=== PATIENT | female | born 1940 | race Caucasian/White ===

== ENCOUNTER 2024-03-13 14:56 | Observation (INO) | payer OTHER, SELFPAY ==
[2024-03-13] VITALS (11 sets, daily range): BP systolic 141–193; BP diastolic 60–92; PULSE 79–98; BMI 25.0; BMI 24.7
[2024-03-13 10:31] LABS: ALT (SGPT) 20 U/L (0-35); AST (SGOT) 29 U/L (14-36); Albumin 3.9 g/dl (3.5-5.0); Alkaline Phosphatase 98 U/L (38-126); Blood Urea Nitrogen 20 mg/dl (7-17); Calcium 10.7 mg/dl (8.4-10.2); Carbon Dioxide 26 mmol/L (22-30); Chloride 108 mmol/L (98-107); Estimated Creatinine Clearance 57 ml/min; Glucose 106 mg/dl (70-99); Potassium 4.3 mmol/L (3.5-5.1); Sodium 140 mmol/L (135-145); Total Bilirubin 0.6 mg/dl (0.2-1.3); Total Protein 6.3 g/dl (6.3-8.2); eGFR > 60.00
--- NOTE | 2024-03-13 10:31 | ED.GENMED ---
History of Present Illness
<JENNY Juarez - Last Filed: 03/13/24 15:17>
General
Chief Complaint: Weakness
Source: patient
Exam Limitations: none
Time Seen by Provider: 03/13/24 10:03
Nursing documentation reviewed up to this point in time: agreed with
History of Present Illness
History of Present Illness:
Patient is an 83-year-old female past med history of hypertension hyperlipidemia presents to the ER for leg weakness. Patient reports around 730 this morning she was getting up out of a chair to walk to her sink and her legs buckled and she felt
leg weakness. She felt weakness in both of her legs and this has persisted. She denied feeling lightheaded denies vertigo or dizziness. Denied headache denied chest pain shortness of breath.
Patient denies any upper extremity weakness. She does report over the past couple days however she feels more tired and just wants to sleep. She denies any bowel or bladder incontinence. Denies any numbness or tingling the legs.
Past History
<JENNY Juarez - Last Filed: 03/13/24 15:17>
Past History
ED Past Medical History: HTN, Hypercholesterolemia, Hypothyroidism and Other (Diverticulitis); Negative IDDM or NIDDM
Social History
Tobacco: Smoker
Family History
Family History: Negative CAD
Review of Systems
<JENNY Juarez - Last Filed: 03/13/24 15:17>
Review of Systems
Other source history: family
All Other Systems: ROS reviewed and negative except as documented in HPI and ROS
Constitutional: Reports fatigue; Denies fever or chills
EENT: Reports no symptoms
Respiratory: Reports no symptoms
Cardiac: Reports no symptoms
ABD/GI: Reports no symptoms
: Reports no symptoms
Musculoskeletal: Reports other (leg weakness)
Skin: Reports no symptoms
Psychiatric: Reports no symptoms
Phy Exam
<JENNY Juarez - Last Filed: 03/13/24 15:17>
General Physical Exam
General Presentation: no apparent distress
General age: appears stated age
General Skin: warm and dry
General Habitus: normal
General Hydration: appears well hydrated
Cardiovascular Exam
Cardiovascular Exam: regular rate/rhythm, no murmur and normal peripheral pulses
Pulmonary Exam
Pulmonary Exam: lungs clear and no respiratory distress
Neurological Exam
Neurological Exam: alert, oriented x3 and other (nml b/l l/e strength and sensation; normal bilateral dorsiflexion plantarflexion strong distal pulses gait ; gait however is often unsteady appears weak mildly ataxic)
Musculoskeletal Exam
Musculoskeletal Exam: full ROM and other (Normal inspection bilateral external pulses)
Skin Exam
Skin Exam: normal color and warm/dry
Psychiatric Exam
Psychiatric Exam: normal mood/affect
Course
<JENNY Juarez - Last Filed: 03/13/24 15:17>
Orders/Labs/Results
Orders:
Orders
03/13/24 10:08
CMP [Comprehensive Metabolic Panel] Urgent
Complete Blood Count/With Diff Urgent
03/13/24 10:30
IV Insert/Care/Rem.- Treatment PRN
03/13/24 10:37
0.9% Sodium Chloride 1000 ml [Nss] 1,000 ml IV BOLUS
03/13/24 11:12
UA Reflex to Culture [Urinalysis Reflex To Culture] Urgent
Date Specimen was Collected: 03/13/24
Time Specimen was Collected: 11:08
Urine Microscopic Reflex Cult Urgent
Urine Culture Urgent
OSCAR Source: U
Specimen Description:
Date Specimen was Collected: 03/13/24
Time Specimen was Collected: 11:08
03/13/24 11:25
CT Head W/o Iv Contrast Urgent
Comment:
Reason For Exam: b/l l/e weakness
03/13/24 12:37
Aspirin Chewable [Low Strength Aspirin] 324 mg PO NOW STA
03/13/24 12:49
MR Brain Without Contrast Routine
Comment:
Reason For Exam: Sudden ataxia/walking dif, ? Cerebellar infarct?
Recent pill cam endoscopy?: No
MR Lumbar Without Contrast Routine
Comment:
Reason For Exam: Chronic back pain, sudden diff walking, no trauma
Recent pill cam endoscopy?: No
03/13/24 14:04
CefTRIAXone [Rocephin] 1,000 mg IV NOW STA
03/13/24 14:10
Electrocardiogram (*1) Stat
Reason for Study: Other
Other Reason for Exam: chest pain
EKG- Treatment ONCE
03/13/24 14:37
Admit/Transfer Patient As Directed
Co-Sign Provider:
Level of Care: Observation services
Assign to:: Telemetry
Physician / Group: Laith
Diagnosis: Bilateral Lower Ext Weakness / Ataxia
Reason for Telemetry: CVA/TIA
Date to Stop Telemetry: 03/16/24
Time to Stop Telemetry: 11:00
NIH Stroke Scale As Directed
Directions: Per protocol
Comment: Please until order to stop
Neurological Checks As Directed
Frequency: Per unit guidelines
03/13/24 14:38
PRN Pain Medication Management As Directed
May give lesser potent ordered pain med per pt: Yes
preference::
Protocol:: Medication orders for pain may be administered in a
manner that supports deferring to patient preference
when the pt is:
- Requesting an ordered lesser potent pain medication.
Least to most potent pain medications are defined
as: acetaminophen < NSAID < tramadol < opioids
(morphine, oxycodone, hydromorphone).
- Requesting a lesser dose of the same medication IF
ORDERED.
- Requesting a less intrusive route of administration
if both routes are prescribed by the provider (PO <
IV).
Ot Eval And Treat Routine
Pt Eval And Treat Routine
Treatment: Gait dysfxn
Activity Level: Out of Bed- Chair
03/13/24 14:40
Code Status As Directed
Resuscitation Status: Full Code
03/14/24 08:00
Aspirin Chewable [Low Strength Aspirin] 81 mg PO DAILY
03/16/24 11:00
DC Protocol for Telemetry ONCE
Abnormal Lab Results
03/13/24 03/13/24
10:08 11:12
Chloride 108 H mmol/L
(98-107)
BUN 20 H mg/dl
(7-17)
Glucose 106 H mg/dl
(70-99)
Calcium 10.7 H mg/dl
(8.4-10.2)
Ur Occult Blood Reflex Trace A
(Negative)
Leukocyte Esterase Rfl 2+ A
(Negative)
Urine WBC (Reflex) 30-40 A /HPF
(0-5)
Urine Bacteria (Reflex) Many A
(Negative)
03/13/24 10:08
03/13/24 10:08
Vital Signs
Initial and Last Documented VS:
Initial Vital Signs
Temp Pulse Resp BP Pulse Ox
99.0 F 62 16 187/80 98
03/13/24 09:26 03/13/24 09:26 03/13/24 09:26 03/13/24 09:26 03/13/24 09:26
Last Documented Vital Signs
Temp Pulse Resp BP Pulse Ox
99.0 F 72 24 169/64 98
03/13/24 09:26 03/13/24 14:00 03/13/24 14:00 03/13/24 14:00 03/13/24 09:26
Industrial Chemistry Teacher consulted with Physician
Industrial Chemistry Teacher consulted with physician?: Yes
Name of Physician Consulted: Nazario
<David Lange, DO - Last Filed: 03/13/24 14:03>
Orders/Labs/Results
Orders:
Orders
03/13/24 10:08
CMP [Comprehensive Metabolic Panel] Urgent
Complete Blood Count/With Diff Urgent
03/13/24 10:30
IV Insert/Care/Rem.- Treatment PRN
03/13/24 10:37
0.9% Sodium Chloride 1000 ml [Nss] 1,000 ml IV BOLUS
03/13/24 11:12
UA Reflex to Culture [Urinalysis Reflex To Culture] Urgent
Date Specimen was Collected: 03/13/24
Time Specimen was Collected: 11:08
Urine Microscopic Reflex Cult Urgent
Urine Culture Urgent
OSCAR Source: U
Specimen Description:
Date Specimen was Collected: 03/13/24
Time Specimen was Collected: 11:08
03/13/24 11:25
CT Head W/o Iv Contrast Urgent
Comment:
Reason For Exam: b/l l/e weakness
03/13/24 12:37
Aspirin Chewable [Low Strength Aspirin] 324 mg PO NOW STA
03/13/24 12:49
MR Brain Without Contrast Routine
Comment:
Reason For Exam: Sudden ataxia/walking dif, ? Cerebellar infarct?
Recent pill cam endoscopy?: No
MR Lumbar Without Contrast Routine
Comment:
Reason For Exam: Chronic back pain, sudden diff walking, no trauma
Recent pill cam endoscopy?: No
03/13/24 14:04
CefTRIAXone [Rocephin] 1,000 mg IV NOW STA
03/13/24 14:10
Electrocardiogram (*1) Stat
Reason for Study: Other
Other Reason for Exam: chest pain
EKG- Treatment ONCE
03/13/24 14:37
Admit/Transfer Patient As Directed
Co-Sign Provider:
Level of Care: Observation services
Assign to:: Telemetry
Physician / Group: Laith
Diagnosis: Bilateral Lower Ext Weakness / Ataxia
Reason for Telemetry: CVA/TIA
Date to Stop Telemetry: 03/16/24
Time to Stop Telemetry: 11:00
NIH Stroke Scale As Directed
Directions: Per protocol
Comment: Please until order to stop
Neurological Checks As Directed
Frequency: Per unit guidelines
03/13/24 14:38
PRN Pain Medication Management As Directed
May give lesser potent ordered pain med per pt: Yes
preference::
Protocol:: Medication orders for pain may be administered in a
manner that supports deferring to patient preference
when the pt is:
- Requesting an ordered lesser potent pain medication.
Least to most potent pain medications are defined
as: acetaminophen < NSAID < tramadol < opioids
(morphine, oxycodone, hydromorphone).
- Requesting a lesser dose of the same medication IF
ORDERED.
- Requesting a less intrusive route of administration
if both routes are prescribed by the provider (PO <
IV).
Ot Eval And Treat Routine
Pt Eval And Treat Routine
Treatment: Gait dysfxn
Activity Level: Out of Bed- Chair
03/13/24 14:40
Code Status As Directed
Resuscitation Status: Full Code
03/14/24 08:00
Aspirin Chewable [Low Strength Aspirin] 81 mg PO DAILY
03/16/24 11:00
DC Protocol for Telemetry ONCE
Abnormal Lab Results
03/13/24 03/13/24
10:08 11:12
Chloride 108 H mmol/L
(98-107)
BUN 20 H mg/dl
(7-17)
Glucose 106 H mg/dl
(70-99)
Calcium 10.7 H mg/dl
(8.4-10.2)
Ur Occult Blood Reflex Trace A
(Negative)
Leukocyte Esterase Rfl 2+ A
(Negative)
Urine WBC (Reflex) 30-40 A /HPF
(0-5)
Urine Bacteria (Reflex) Many A
(Negative)
03/13/24 10:08
03/13/24 10:08
Vital Signs
Initial and Last Documented VS:
Initial Vital Signs
Temp Pulse Resp BP Pulse Ox
99.0 F 62 16 187/80 98
03/13/24 09:26 03/13/24 09:26 03/13/24 09:26 03/13/24 09:26 03/13/24 09:26
Last Documented Vital Signs
Temp Pulse Resp BP Pulse Ox
99.0 F 72 24 169/64 98
03/13/24 09:26 03/13/24 14:00 03/13/24 14:00 03/13/24 14:00 03/13/24 09:26
<JENNY Juarez - Last Filed: 03/13/24 15:17>
MDM/Problems Addressed
Differential Diagnosis Includes:
not limited to: leg weakness , cva , dehydration, infection
MDM/Problems Addressed:
Patient is an 83-year-old female who presented to the ER for evaluation of leg weakness. Patient got up from a chair and felt that her legs were very weak bilaterally. It has not changed in starting of symptoms. She denies any associated upper
extremity weakness or headache. She denies any difficulty with speech. She presents awake alert no acute distress oriented x 3 clear speech normal strength on exam to upper lower extremities however her gait is off her balance is off she seems
minimally ataxic. She describes as feeling very weak in her legs.
Patient evaluated by ED physician CT head negative. Patient eval by neurology who does recommend admission and MRI for possible stroke. As discussed patient was given aspirin. Patient incidentally has a UTI the end of symptoms she was treated
with 1 dose of Rocephin
Chronic conditions affecting care:
htn
<JENNY Juarez - Last Filed: 03/13/24 15:17>
*Radiology
Radiology exam reviewed: radiology read reviewed
*Pulse Oximetry
Patient hypoxic: no
*EKG
Interpreted by ED Provider?: Yes
Heart Rate: 75
Rate: normal
Rhythm: sinus
Ischemia: non-specific ST changes
*Critical Care Note
Total Time (30-74mins, 75-104mins- exclusive of procedures): Not Applicable
Data Reviewed
Review of Other/Old Records Reveals: Radiology Studies
Source: patient
<JENYN Juarez - Last Filed: 03/13/24 15:17>
Patient Management
Discussion with other providers: Legger Press Operator (Neurologist Dr Stevenson )
ED Attending Note
<JENNY Juarez - Last Filed: 03/13/24 15:17>
-
Portions of this chart may have been created with voice recognition software.� Occasional wrong word or��sound alike� substitutions may have occurred due to the inherent limitations of voice recognition software.
<David Lange DO - Last Filed: 03/13/24 14:03>
ED Attending Note
Patient seen and examined by attending physician: Yes
I performed the substantive portion of visit, reviewed & personally made and approve the management plan that is documented in note by myself or DOMENICA.: Yes
ED Attending Note:
I have seen and evaluated the patient with a [id number] encounter. I have spoken to the advance practicer provider and involved in the medical history, the physical exam, medical decision making.
Evaluation and management service: agree unless noted differently below.
Results interpretation: agree unless noted differently below.
Focused HPI: 83-year-old female presenting for evaluation of generalized leg weakness. Patient was walking and she felt her legs buckle. It was in both eyes to both legs. She thinks symptoms are improving. She denies any bowel issues. She
denies back pain or fevers. She does admit that she has not been drinking much water recently. Daughter at bedside indicating that she has been less active due to the current heat wave
Physical exam: Sitting in bed comfortably. Mildly dry mucous membranes. Negative straight leg raise. Muscle strength intact to both legs. Sensation grossly intact. Distal pulses intact. No back pain noted. No abdominal pain noted
Medical Decision Making: Given the improving symptoms without intervention, we discussed less likely spinal cord issues or [place]. Will give fluids and reassess
On reevaluation, we attempted to walk the patient but she became significantly ataxic. Neurology at bedside and will admit for MRI and further work
Discharge Plan
Departure
Patient Disposition: Admit
Date of Disposition: 03/13/24
Time of Disposition: 13:29
Admit to: Telemetry
Admit to doctor: hospitaist
Presentation/result/management discussed w/ accepting MD/DO: Hospitalist
Patient with high blood pressure during this ER visit?: Yes
Covid-19: Not Applicable
Discharge Problem:
Bilateral leg weakness, Ataxia
Interventions
Interventions:
*Risk Screen - Suicide Last Done: 03/13/24 09:52
*General Assessment Last Done: 03/13/24 09:52
*Neglect/Abuse Screening Last Done: 03/13/24 09:52
ED- Fall Risk Assessment Last Done: 03/13/24 09:52
*ED COVID-19 Vaccine History Last Done: 03/13/24 09:52
ED- Cardiac Assessment Last Done: 03/13/24 09:52
ED- Neurological Assessment Last Done: 03/13/24 09:52
ED- Pulmonary Assessment Last Done: 03/13/24 09:52
[2024-03-13] MEDS: NSS 1000 IV (11:13)
[2024-03-13 11:24] LABS: % Basophils 0.4 % (0-2); % Eosinophils 1.3 % (0-6); % Immature Granulocytes 0.1 % (0-0.5); % Monocytes 7.7 % (1.7-9.3); % Neutrophils 64.5 % (42.2-75.2); Absolute Eosinophils 0.1 10^3/uL (0-0.7); Absolute Lymphocytes 2.2 10^3/uL (1.2-3.4); Absolute Monocytes 0.6 10^3/uL (0.1-0.6); Absolute Neutrophils 5.3 10^3/uL (1.4-6.5); Hematocrit 38.3 % (37.0-47.0); Hemoglobin 13.3 g/dL (12.0-16.0); Mean Corp Hgb Conc. 34.7 g/dL (33.0-37.0); Mean Corpuscular Hgb 28.9 pg (27.0-31.0); Mean Corpuscular Volume 83.1 fL (81.0-99.0); Mean Platelet Volume 10.2 fL (7.4-10.4); Nucleated Red Blood Cells % 0 %; Platelet Count 274 10^3/uL (130-400); Red Blood Cell Count 4.61 10^6/uL (4.20-5.40); Red Cell Dist. Width 12.6 % (11.5-14.5); White Blood Cell Count 8.3 10^3/uL (4.8-10.8)
[2024-03-13 11:30] LABS: Urine Albumin Negative (Neg - Trace); Urine Bilirubin Negative (Negative); Urine Character Clear (Clear); Urine Color Yellow; Urine Glucose Negative (Negative); Urine Ketone Negative (Negative); Urine Leukocyte 2+ (Negative); Urine Nitrite Negative (Negative); Urine Occult Blood Trace (Negative); Urine Specific Gravity 1.015 (<1.030); Urine Urobilinogen Negative (Neg - 1+)
--- NOTE | 2024-03-13 11:34 | CON.NEURO4 ---
Consultation - Neurology 4
-
CONSULTING PHYSICIAN: Rasta Stevenson
REFERRING PHYSICIAN: ER
DICTATED BY: Rasta Stevenson
DATE/TIME OF REQUEST: 03/13/24
DATE/TIME OF CONSULTATION: 03/13/24
Reason for Consultation: Weakness
History of Present Illness:
The patient is an 83-year-old right-handed woman with a past medical history of hypertension hyperlipidemia presenting the hospital with sudden onset walking difficulty and leg weakness and buckling. This is happened earlier this morning but she
actually woke up this morning feeling okay when she first started her day.
No recent head neck or back trauma she has chronic back pain which is unchanged no changes in the urinary bowel function denies any urinary incontinence or retention or bowel incontinence. Describes numbness in the feet bilaterally for a couple of
years which has been a very minor issue. She started using a cane in the past couple of months feeling more steady with it.
No speech difficulty vision changes dysarthria double vision is or paresthesia. Blood pressure significantly elevated in the ED to 218-2 25 maximum systolic pressure range. No history of stroke, not taking antiplatelet or anticoagulants.
Past Medical History: Hypertension, hyperlipidemia, hypothyroidism, diverticulitis
Surgical History: Hysterectomy, complications leading to colostomy s/p takedown, right knee surgery
Family History: Non-contributory
Social History: and lives with her roque, 1 of her children passed 9 years ago, other child alive and she has grandchildren and great grandchildren, worked in sales, restaurants, formerly did [employer]
Allergies: Simvastatin
Review of Symptoms:
Patient denies any fever, headache, chest pain, shortness of breath, GI or symptoms.
Physical Exam:
Elderly woman no distress, no head or neck trauma, no neck masses or meningismus cervical spine normal to palpation, heart rate regular, breathing unlabored, abdomen soft non tender no lower extremity edema
Neurologic Examination:
The patient is awake, alert and oriented x 3. She is able to follow commands and answer questions appropriately. There is no aphasia or dysarthria. On cranial nerve assessment, pupils are 3 mm bilateral, round and reactive to light and
accommodation. Visual thakkar are full. Extraocular movements are intact. Facial sensations are intact and bilaterally symmetrical, there is no facial asymmetry. Hearing is intact bilaterally to normal conversation volume. Tongue palate and uvula
are midline. Sternocleidomastoid strengths are full bilaterally. Motor strengths are 5/5 bilateral upper and lower extremities on medical research Kenner scale. There is no drift or involuntary movement noted. DTR's 2+ present symmetric in achilles
patella biceps triceps. Coordination is intact by finger to nose bilaterally. Ataxic gait with positive Rhomberg.
Neuro Imaging: CT head unremarkable
Impressions
1. Sudden onset walking difficulty with ataxia. Patient at baseline probably has a mild peripheral neuropathy given her description of years long bilateral foot paresthesia but seems to have suffered a new insult to the nervous system. Elevated
blood pressures in the ED along with new onset ataxia would bring to mind a possible cerebellar ischemic stroke. Neurologic examination is less suggestive of a severe acute peripheral neuropathy and does not suggest a spinal cord lesion.
2. Less likely these are symptoms from UTI, patient with no dysuria or change in urinary function. Less likely this is purely a hypertensive neurologic issue.
3.
4.
Recommendations:
1. Check MRI brain and lumbar spine without contrast
2. Give aspirin 325 mg once and start aspirin 81 mg daily
3. Would pursue systolic blood pressure goal less than 180 max
4. Neurologic checks and NIH stroke scales
5. Cardiac telemetry, hold off on any echo for now
6. PT/OT mobilization
Discussed patient care with: Patient, ED
[2024-03-13 11:43] LABS: Urine Bacteria Many (Negative); Urine Red Blood Cell 0-2 /HPF (0-2); Urine White Cell 30-40 /HPF (0-5)
[2024-03-13] MEDS: LOW STRENGTH ASPIRIN 324 MG PO (12:53)
[2024-03-13] MEDS: ROCEPHIN 1000 MG IV (14:15)
--- NOTE | 2024-03-13 14:51 | HPS.HSE ---
Addendum entered and electronically signed by Akhil Ozuna MD 03/13/24 15:06:
I saw and examined the patient.
The SPECIAL EDUCATION SUPERVISOR's note was reviewed and I agree with the note.
Comment:
83-year-old female past medical history of primary hypertension, hypothyroidism was presented from home with bilateral lower extremity weakness. Patient with history of chronic back pain. States her knees buckled and she felt off balance and
unsteady. Uses cane at home. Had x-rays of the back in the past. Denies any headache, lightheadedness, dizziness or chest pain or shortness of breath. Patient was evaluated neurology in the ER and MRI brain was recommended. CT of the head was
negative. Quit smoking late last year.
General: Comfortable and Conversant
HEENT: Anicteric and Moist mucous membranes
Respiratory: Clear and Non Labored Respirations
Cardiac: S1/S2 and Regular Rhythm
GI: Soft and Non Tender
Rectal: Deferred by Provider
Musculoskeletal: No Clubbing, No Cyanosis and No Edema
Skin: Warm and Dry
Neuro: Awake, Alert, Oriented and Other (4/5 Strength Bilateral Hip Flexion; 4/5 Strength Left Knee Extension; Other dewey strength 5/5 )
Psych: Calm
Impression
Bilateral lower extremity weakness likely secondary UTI rule out CVA versus lumbar radiculopathy
Primary hypertension
Hypothyroidism
Tobacco abuse
Bowel resection with ostomy and reversal
Plan
MRI of the brain ordered
Neurochecks
NIH stroke scale
PT and OT in the morning
Continue with blood pressure control
Check lipid panel A1c
MRI lumbar spine
Status post 225 mg aspirin
Start 81 mg aspirin for now
Neurology recs
Continue home meds
dvt ppx- scds till mri results
Discussed with daughter at bedside
Original Note:
Family Physician
-
Family Physician: Heidi Lujan
Chief Complaint
-
Lower Extremity Weakness
History of Present Illness
Patient is an 83 y/o female with a PMH of Hypertension, and hyperthyroidism who reports to the ED for bilateral leg weakness. She states that this morning she was feeling fine. When she went to get up from the table after breakfast her legs felt
extremely weak and her knees buckled beneath her. Since then she has had difficulty walking and feeling off balance and unsteady. She doesn't feel like she has good feeling in her legs. She admits to using a cane while not at home. She denies upper
extremity weakness. She has a history of chronic back pain but denies o of pain down the legs. She denies dizziness, lightheadedness, vertigo, chest pain, shortness of breath, headache, changes in bowel or bladder function, paresthesia, nausea or
vomiting. She denies a history of DM or neuropathy.
Medical History
Past Medical History
Past Medical History: Reports Other
Additional Past Medical History:
Essential Hypertension
Hyperthyroidism
Past Surgical History: Reports Other
Additional Past Surgical History:
Bowel Resection with Ostomy and Subsequent Reversal
Social History
Tobacco: Former Smoker (Quit in 2022)
Alcohol: None
Personal:
Living: With Family
Family History
Family History: Not pertinent
Allergies / Home Medications
Allergies reflects when Allergies were last updated in [facility].
Home Medications with original date entered in [facility]
Allergy/Medication List:
Allergies
Allergy/AdvReac Type Severity Reaction Status Date / Time
simvastatin Allergy Intermediate Itching Verified 03/13/24 09:27
Home Medications
amlodipine 5 mg tablet 5 mg PO DAILY 03/13/24
cholecalciferol (vitamin D3) 25 mcg (1,000 unit) tablet (Vitamin D3) 25 mcg PO DAILY 03/13/24
methimazole 5 mg tablet 5 mg PO NOON 03/13/24
metoprolol tartrate 25 mg tablet 25 mg PO BID 03/13/24
naproxen sodium 220 mg tablet (Aleve) 220 mg PO BIDPRN PRN mild pain 03/13/24
therapeutic multivitamin 1 tab PO DAILY 03/13/24
Review of Systems
-
A 12 point ROS was completed and negative except as noted: Yes
Constitutional: Denies Fever or Chills
Respiratory: Denies Cough or Trouble Breathing
Cardiac: Denies Chest Pain or Palpitations
Abdomen/GI: Denies Abdominal Pain, Nausea, Vomiting or Diarrhea
Neurological: Reports See HPI
Physical Exam
Vital Signs
Vital Signs
Temp Pulse Resp BP Pulse Ox
99.0 F 72 24 169/64 98
03/13/24 09:26 03/13/24 14:00 03/13/24 14:00 03/13/24 14:00 03/13/24 09:26
Physical Exam
General: Comfortable and Conversant
HEENT: Anicteric and Moist mucous membranes
Respiratory: Clear and Non Labored Respirations
Cardiac: S1/S2 and Regular Rhythm
GI: Soft and Non Tender
Rectal: Deferred by Provider
Musculoskeletal: No Clubbing, No Cyanosis and No Edema
Skin: Warm and Dry
Neuro: Awake, Alert, Oriented and Other (4/5 Strength Bilateral Hip Flexion; 4/5 Strength Left Knee Extension; Other dewey strength 5/5 )
Psych: Calm
Laboratory Results
-
03/13/24 10:08
03/13/24 10:08
Laboratory Results
Total Bilirubin 0.6 mg/dl (0.2-1.3) 03/13/24 10:08
AST 29 U/L (14-36) 03/13/24 10:08
ALT 20 U/L (0-35) 03/13/24 10:08
Alkaline Phosphatase 98 U/L (38-126) 03/13/24 10:08
Data Reviewed
-
CT Scan: Report Reviewed by me
Lab Data: Labs Reviewed by me
Impression/Plan
-
Bilateral Lower Extremity Weakness and Ataxia, possible Acute Stroke
-Consult Neurology
-Check Brain MRI and Lumbar Spine MRI
-Check LFP and Hgba1c
-Patient given Aspirin 324mg in ED - Start Aspirin 81mg Daily
-Consult PT/OT
Urinary Tract Infection
-Continue Rocephin
-Await urine culture
Suspected Peripheral Neuropathy
-Check vitamin b12 and folic acid levels
Essential Hypertension
-Goal SBP Less Than 180
-Continue amlodipine and metoprolol
Hyperthyroidism
-Check TSH
-Continue methimazole
DVT proph: SCDs
Code Status: Full Code
--- NOTE | 2024-03-13 15:06 | W.PN.UPDATE ---
Update Note
Progress Note Update
for billing purpose
--- NOTE | 2024-03-13 17:02 | PTOTSP ---
ST Acute Care Evaluation
Pt presents with a functional oropharyngeal swallow. No overt s/s of penetration or aspiration observed at bedside. Pt's speech is clear and receptive/expressive language generally appear intact. Pt solely c/o occasional reflux s/p PO intake.
Recommendations:
- Continue with regular solids, thin liquids, meds as tolerated.
- General aspiration precautions; reflux precautions.
- Consider OP GI work-up for GERD.
- CHIEF SECURITY AND SAFETY OFFICER to sign off, no skilled services deemed necessary at this time.
[2024-03-13] MEDS: LOPRESSOR 25 MG PO (20:56)
[2024-03-14] MEDS: MELATONIN 3 MG PO (01:18)
[2024-03-14 03:24] VITALS: BP 144/66
[2024-03-14 07:59] VITALS: BP 169/80
[2024-03-14 08:06] LABS: Hematocrit 37.5 % (37.0-47.0); Hemoglobin 12.8 g/dL (12.0-16.0); Mean Corp Hgb Conc. 34.1 g/dL (33.0-37.0); Mean Corpuscular Hgb 29.1 pg (27.0-31.0); Mean Corpuscular Volume 85.2 fL (81.0-99.0); Platelet Count 226 10^3/uL (130-400); Red Cell Dist. Width 12.4 % (11.5-14.5); White Blood Cell Count 6.3 10^3/uL (4.8-10.8)
[2024-03-14] MEDS: NORVASC 5 MG PO ×2 (08:08→11:07)
[2024-03-14] MEDS: LOPRESSOR 25 MG PO (08:08)
[2024-03-14] MEDS: LOW STRENGTH ASPIRIN 81 MG PO (08:08)
[2024-03-14] MEDS: THERAGRAN 1 TABLET PO (08:08)
[2024-03-14 08:57] LABS: Blood Urea Nitrogen 15 mg/dl (7-17); Calcium 10.3 mg/dl (8.4-10.2); Carbon Dioxide 26 mmol/L (22-30); Chloride 109 mmol/L (98-107); Estimated Creatinine Clearance 57 ml/min; Glucose 94 mg/dl (70-99); HDL Cholesterol 50 mg/dl; LDL Cholesterol, Calculated 114 mg/dl; Magnesium 1.9 mg/dl (1.6-2.3); Sodium 139 mmol/L (135-145); Total Cholesterol 182 mg/dl (50-199); Triglyceride 92 mg/dl (10-149); Very Low Density Lipoprotein 18 mg/dl (0-30); eGFR > 60.00
[2024-03-14 09:07] LABS: Glycohemoglobin (HgbA1c) 5.5 % (4.0-5.6)
[2024-03-14 09:26] LABS: TSH Reflex To Free T4 < 0.02 uIU/ml (0.47-4.68)
--- NOTE | 2024-03-14 09:33 | W.PN.NEURO.1 ---
Today's Communication / Plan
-
discontinue aspirin 81 mg daily
follow orthostatics
pursue systolic blood pressure goal of normotension
can cancel NIH stroke scales
PT/OT mobilization
Neuro Assessment/Plan
Assessment
Neuro Imaging: CT head unremarkable
MRI brain and lumbar spine without contrast were unremarkable for etiology of symptoms
Impressions
1. Sudden onset walking difficulty with ataxia, improved after hospitalization.
Patient at baseline probably has a mild peripheral neuropathy given her description of years long bilateral foot paresthesia but seems to have suffered a new insult to the nervous system. Elevated blood pressures in the ED along with new onset
ataxia would bring to mind a possible hypertensive encephalopathy
Plan
discontinue aspirin 81 mg daily
follow orthostatics
pursue systolic blood pressure goal of normotension
can cancel NIH stroke scales
PT/OT mobilization
Will follow peripherally
Subjective/Objective
Subjective Data
Date of Service: March 14, 2024
Patient feels improved to 70% of normal
Objective Data
Vital Signs
Temp Pulse Resp BP Pulse Ox
36.5 C 75 18 169/80 95
03/14/24 07:59 03/14/24 07:59 03/14/24 07:59 03/14/24 07:59 03/14/24 07:59
Lab Results
03/14/24 07:27
03/14/24 07:27
Sodium 139 mmol/L (135-145) 03/14/24 07:27
Potassium 4.0 mmol/L (3.5-5.1) 03/14/24 07:27
BUN 15 mg/dl (7-17) 03/14/24 07:27
Glucose 94 mg/dl (70-99) 03/14/24 07:27
Calcium 10.3 mg/dl (8.4-10.2) H 03/14/24 07:27
LDL Cholesterol, Calc 114 mg/dl 03/14/24 07:27
Patient Allergies
simvastatin Allergy (Intermediate, Verified 03/13/24 09:27)
Itching
Review of Systems
-
History Source: Patient
All other systems: Reviewed and negative
EENT: Negative Swallowing Difficulty
Respiratory: Negative Trouble Breathing
Cardiac: Negative Chest Pain
Abdomen/GI: Negative Incontinence of Stool
Genitourinary: Negative Incontinence
Musculoskeletal: Negative Back Pain or Neck Pain
Neuro: Negative Dizzy or Headache
Physical Exam
-
General: No Apparent Distress and Appears Stated Age
Eyes: Round OU, Pollock Conjunctivae and No Ptosis
HEENT: Anicteric and Moist Mucous Membranes
Neck: Full Range of Motion
Respiratory: No Dyspnea
Cardiac: No JVD
GI: Non-distended
Skin: Unremarkable
Extremities: No Clubbing, No Cyanosis and No Edema
Psych: Intact Judgement/Insight
Extended Neurological Exam
Mood & Affect: Mood Unremarkable and Affect Unremarkable
Attention Span & Concentration: Awake, Alert, Interactive and No Difficulty with 2 Step Request
Memory: Unremarkable
Tremor: Hand Tremor Absent and Head Tremor Absent
Speech: Quality Unremarkable and Quantity Unremarkable
Cranial Nerve II: Left Eye: Pupillary Size Unremarkable and Visual Garcia Grossly Intact
Cranial Nerve II: Right Eye: Pupillary Size Unremarkable and Visual Garcia Grossly Intact
Cranial Nerves III, IV, : Extraocular Movement: Grossly Intact
Cranial Nerve VII: Facial Symmetry: Normal Facial Symmetry
Cranial Nerve VIII: Hearing: Unremarkable Hearing to Normal Conversational Volume
Cranial Nerve XI: Shoulder Shrug: Unremarkable
Muscle Strength, Overall: Spontaneously Moves and Other (no difficulty toe standing or heel standing)
Muscle Bulk & Tone: Bulk Unremarkable and Tone Unremarkable
Pronator Drift: No Drift in Upper Extremities
Touch Sensation: Unremarkable
Coordination: [id number] Testing Unremarkable
Gait & Station: Up from Seated Without Problem and Romberg Test Positive
Data Reviewed
-
MRI Head: Report Reviewed
MRI Lumbar Spine: Report Reviewed
Labs: Report Reviewed
Reviewed with: Physician, Nurse Practioner and Patient
Old Records: Summarized
Past History
Past History
ED Past Medical History: HTN, Hypercholesterolemia, Hypothyroidism and Other (Diverticulitis, gait dysfunction); Negative IDDM or NIDDM
Social History
Tobacco: Former smoker (stopped 05/2023)
Alcohol: None
Drug: None
Personal:
Living: with family
Family History
Family History: Negative CAD
Medications
-
Medications:
Generic Name Dose Route Start Last Admin
Trade Name Freq PRN Reason Stop Dose Admin
Acetaminophen 650 mg 03/13/24 15:43
Acetaminophen 650 Mg Rectal Suppository RECTAL 04/10/24 15:42
Q4HPRN PRN
BUTLER, mild pain, or temp >100.4F
Acetaminophen 650 mg 03/13/24 15:43
Acetaminophen 325 Mg Tablet PO 04/10/24 15:42
Q4HPRN PRN
BUTLER, mild pain, or temp >100.4F
Amlodipine Besylate 5 mg 03/14/24 08:00 03/14/24 08:08
Amlodipine 5 Mg Tablet PO 04/11/24 07:59 5 mg
DAILY SHAHEEN Administration
Aspirin 81 mg 03/14/24 08:00 03/14/24 08:08
Aspirin 81 Mg Chewable Tablet PO 04/11/24 07:59 81 mg
DAILY SHAHEEN Administration
Ceftriaxone Sodium 1,000 mg 03/14/24 14:00
Ceftriaxone 1000 Mg / 10 Ml Vial IV
Q24H SHAHEEN
Methimazole 5 mg 03/14/24 12:00
Methimazole 5 Mg Tablet PO 04/11/24 11:59
NOON SHAHEEN
Metoprolol Tartrate 25 mg 03/13/24 20:00 03/14/24 08:08
Metoprolol 25 Mg Regular Release Tablet PO 04/10/24 19:59 25 mg
BID SHAHEEN Administration
Multivitamins Therapeutic 1 tablet 03/14/24 08:00 03/14/24 08:08
Multivitamin Tablet PO 04/11/24 07:59 1 tablet
DAILY SHAHEEN Administration
Sterile Water 10 ml 03/14/24 14:00
Sterile Water For Injection 10 Ml Vial IV 04/11/24 13:59
Q24H SHAHEEN
[2024-03-14 09:52] LABS: Free T4 1.95 ng/dl (0.78-2.19)
[2024-03-14 10:01] LABS: Folate > 20.0 ng/ml (2.76-20); Vitamin B12 551 pg/ml (239-931)
[2024-03-14 10:27] VITALS: BP 191/68; BP 202/103; PULSE 58; PULSE 72; O2SAT 96
[2024-03-14 10:38] VITALS: BP 191/68; BP 200/102
--- NOTE | 2024-03-14 10:51 | W.PN.HOSP.TC ---
Addendum entered and electronically signed by Akhil Ozuna MD 03/14/24 13:37:
More than 30 minutes spent in discharge including
Final examination of the patient
Summarizing hospital stay
Instructions for continuing care to all relevant caregivers
Preparation of discharge records, prescriptions, and referral forms
Total time spent (in minutes): 45
Original Note:
Today's Communication/Plan
-
Awaiting rehab evaluation
Increase Norvasc
As needed BP meds
Neurology recs
dc abx
Assessment / Plan
Assessment / Plan
Bilateral Lower Extremity Weakness and Ataxia, likely secondary to lumbar radiculopathy
-Consult Neurology
-MRI brain negative for stroke
-MRI lumbar spine with severe osteoarthritis. Recommended PT OT and outpatient spine orthopedic evaluation. Patient stated she would not like to undergo any surgery even if it offered.
-LDL 114. A1c 5.5.
-Consult PT/OT-await eval
Pyuria
-dc Rocephin
-Urine culture with mixed chloe. No symptoms. DC antibiotics.
Essential Hypertension
-Continue amlodipine and metoprolol
-Blood pressure was elevated while working with PT. Increase Norvasc to 10 mg.
Hyperthyroidism
-Continue methimazole
-Continue with outpatient follow-up.
DVT proph: SCDs
Code Status: Full Code
Anticipated Discharge: Within 24 hours
Subjective/Interval History
-
Date of Service: March 14, 2024
states feeling improvement in LE weakness
walking with walker to bathroom
no back pain
Denies any numbing or tingling in lower extremities
Denies any fecal incontinence
Denies lightheaded or dizziness
Objective Data
-
Labs:
Laboratory Results
03/14/24
07:27
WBC 6.3
Hgb 12.8
Hct 37.5
Plt Count 226
Sodium 139
Potassium 4.0
Chloride 109 H
Carbon Dioxide 26
BUN 15
Creatinine 0.5 L
Glucose 94
Calcium 10.3 H
Vital Signs:
Vital Signs
Temp Pulse Resp BP Pulse Ox
97.7 F 75 18 169/80 95
03/14/24 07:59 03/14/24 07:59 03/14/24 07:59 03/14/24 07:59 03/14/24 07:59
I&O
03/13/24 03/14/24 03/15/24
06:59 06:59 06:59
Intake Total 720 / 720
Balance 720 / 720
Physical Exam
-
General: Well Developed and No Apparent Distress
HEENT: Normocephalic, Atraumatic and Moist Mucous Membranes
Respiratory: Clear to Auscultation
Cardiac: Regular Rhythm and S1/S2; Negative Murmur, Rub or Gallop
GI: Soft, Nontender, Nondistended and Normal Bowel Sounds; Negative Organomegaly
Rectal: Deferred by Provider
Musculoskeletal: No Clubbing, No Cyanosis and No Edema
Skin: Negative Rash
Neuro: Awake, Alert, Oriented, AO x 3 and Nonfocal/Grossly Intact
Psych: Calm
[2024-03-14] MEDS: TAPAZOLE 5 MG PO (11:07)
[2024-03-14 11:39] VITALS: BP 161/67
[2024-03-14 11:40] VITALS: BP 142/70; BP 158/66; BP 161/67; PULSE 62; PULSE 72
--- NOTE | 2024-03-14 12:38 | W.DCSUMMARY ---
Discharge Summary
Discharge Data
Date of Admission: 03/13/24
Date of Discharge: 03/14/24
-
Pending Results: No
Hospital Course
83-year-old female past medical history of hypertension, hypothyroidism was presenting from home with lower extremity weakness. Patient slipped down and sat on the floor. Patient was evaluated in the ER by neurology. CT head was negative. MRI
brain was negative for acute stroke. Patient underwent MRI of the lumbar spine with severe osteoarthritis with mild compression without any acute fracture. Patient was eval by PT and OT recommend outpatient evaluation. Blood pressure was elevated
and Norvasc dose was increased. Urine culture negative for growth as with mixed chloe. Antibiotic DC'd. Recommended outpatient spine evaluation if patient interested. DC home with outpatient primary doctor follow-up.
Discharge Plan
-
Patient Disposition: Home with Home Care
Discharge Diagnosis/Procedures: Bilateral lower extremity weakness and ataxia likely secondary to lumbar radiculopathy
Primary hypertension elevated
Condition: Fair
Diet: As tolerated
Activity: With assistance and As tolerated
Driving Restrictions: Not until seen by your Dr
Other Services: VN and PT
Referrals:
Sandra Lee DO [Active] - None
Heidi Lujan MD [Family Provider] - in less than 1 week
Prescriptions:
New
amlodipine [Norvasc] 10 mg tablet
10 mg PO DAILY Qty: 30 0RF
Continued
therapeutic multivitamin Tablet
1 tab PO DAILY
methimazole 5 mg Tablet
5 mg PO NOON
metoprolol tartrate 25 mg Tablet
25 mg PO BID
cholecalciferol (vitamin D3) [Vitamin D3] 25 mcg (1,000 unit) Tablet
25 mcg PO DAILY
Discontinued
amlodipine 5 mg tablet
5 mg PO DAILY
naproxen sodium [Aleve] 220 mg Tablet
220 mg PO BIDPRN PRN (Reason: mild pain)
Discharge Orders:
Discharge Patient (As Directed); Ordered 03/14/24
Ordered By: Akhil Ozuna
Discharge Date and Time
Print Language: ICELANDIC
--- NOTE | 2024-03-14 13:22 | CM ---
Patient seen bedside, initial assessment completed. Patient resides with her spouse in a multiple level home, one step to enter. Patient reports having a walker, multiple canes, grab bars, and railings in the home. Patient reports history of VN in
the past, (2009, unsure agency), reports outpatient therapy in the past. Patient PCP Tai, pharmacy used [facility], confirms prescription coverage. Patient denies food, housing/utility, transportation insecurities at home. [place]
form reviewed, signed, placed in chart. Script for outpatient therapy provided to nurse. Patient reports her daughter will be here around 2:00 p.m. to provide transportation home. CM will continue to follow for all discharge planning needs.
Plan; home with outpatient script.
--- NOTE | 2024-03-14 14:35 | PN.CDI ---
CDI
- -
CDI:
Physician Documentation Request
Admit Date: 03/13/24 14:56
Dear Doctor Laith,
Please review the following and provide your response in the progress notes.
Clinical Indicators:
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
Brain MRI, 03/13
#...posterior disc/osteophyte complex at C3-4 abuts the
#...anterior margin of the cervical spinal cord and may slightly compress it.
#There is also probably slight compression of the posterior margin of the
#...cervical spinal cord at this level from prominence of the interspinous ligament.
Please indicate in the progress notes that the above diagnosis is valid for this patient:
Cervical Spinal Cord Compression is a valid diagnosis (Please include it in your progress notes)
Cervical Spinal Cord Compression is not a valid diagnosis for this patient
Cervical Spinal Cord Compression is not yet confirmed but remains a suspected condition
Other(please specify)
Use of terms such as suspected, likely, concern for, or probable are acceptable for a diagnosis that is being evaluated, monitored or treated as if it exists and can be coded in the inpatient setting, when documented at the time of discharge.
Thank you,
Zeynep Peters RN BSN CCDS
CDI Specialist
please contact via tiger text
Please use your independent medical judgment in providing your response.
== END 2024-03-14 14:42 | disposition home or self-care (01) ==
LOC: 4 WEST ACU 14:56
PROVIDERS: Nurse Practitioner; Physician Assistant Medical; ADMITTING PHYSICIAN Hospitalist; CONSULT PHYSICIAN Student in an Organized Health Care Education/Training Program; EMERGENCY PHYSICIAN Student in an Organized Health Care Education/Training Program; FAMILY PHYSICIAN Internal Medicine
DX: R53.1 Weakness (principal); R27.0 Ataxia, unspecified; G89.29 Other chronic pain; M54.9 Dorsalgia, unspecified; M41.9 Scoliosis, unspecified; M47.896 Other spondylosis, lumbar region; I10 Essential (primary) hypertension; E78.5 Hyperlipidemia, unspecified; E78.00 Pure hypercholesterolemia, unspecified; R07.9 Chest pain, unspecified; R20.0 Anesthesia of skin; E05.90 Thyrotoxicosis, unspecified without thyrotoxic crisis or storm; N39.0 Urinary tract infection, site not specified; Z87.891 Personal history of nicotine dependence
CPT/HCPCS: 70450; 70551; 72148; 80048; 80053; 80061; 81003; 81015; 82607; 82746; 83036; 83735; 84439; 84443; 85025; 85027; 87086; 92610; 93005; 96361; 96374; 97162; 97166; 99285; G0378